=== PATIENT | male | born 1985 | race Caucasian/White ===

== ENCOUNTER 2017-02-22 17:20 | Emergency (ER) | payer MEDICARE ==
[2017-02-22 19:01] LABS: HEMOGLOBIN 15.2 gm/dl (14.0-17.5); RED BLOOD COUNT 5.05 M/UL (4.20-5.50)
[2017-02-22 19:23] LABS: BUN/CREATININE RATIO 19 (0-10)
== END 2017-02-22 23:13 | disposition home or self-care (01) ==
LOC: ER1 17:20
DX: R10.31 Right lower quadrant pain (principal); R11.0 Nausea; R19.7 Diarrhea, unspecified; R68.83 Chills (without fever); I10 Essential (primary) hypertension; Z90.49 Acquired absence of other specified parts of digestive tract; Z79.899 Other long term (current) drug therapy
CPT/HCPCS: 36415; 80053; 81001; 82150; 83690; 85025; 96374; 96375; 99284; J2270; J2405; J7030; J7050; Q9962

== ENCOUNTER 2021-05-09 12:04 | Emergency (ER) | payer OTHER ==
[~2021-05-09 12:04] MED LIST: CATAPRES0.2 MG PO; CLEOCIN HCL300 MG PO; COLESTID1 GM PO; NORCO 7.5-3251 EACH PO; TOPROL XL50 MG PO; ZOFRAN4 MG PO
[2021-05-09 14:04] LABS: HEMOGLOBIN 15.4 gm/dl (14.0-17.5); RED BLOOD COUNT 5.08 M/UL (4.20-5.50); WHITE BLOOD COUNT 10.3 K/UL (4.5-11.0)
[2021-05-09 14:41] LABS: BUN/CREATININE RATIO 15 (0-10)
[2021-05-09] MEDS ORDERED: BENTYL 10MG CAP10 MG PO (18:01)
[2021-05-09] MEDS ORDERED: ZOFRAN4 MG PO (18:01)
== END 2021-05-09 18:04 | disposition home or self-care (01) ==
LOC: ER1 12:04
PROVIDERS: Physician Assistant Medical
DX: R10.31 Right lower quadrant pain (principal); I10 Essential (primary) hypertension; Z90.49 Acquired absence of other specified parts of digestive tract
CPT/HCPCS: 80053; 81001; 85025; 85652; 86140; 99284; Q9967

== ENCOUNTER 2021-07-09 23:21 | Emergency (ER) | payer OTHER ==
[~2021-07-09] VITALS: Ht 185.4 cm; Wt 136.1 kg
[~2021-07-09 23:21] MED LIST changes: +BENTYL 10MG CAP10 MG PO
[2021-07-10 01:04] LABS: HEMOGLOBIN 15.9 gm/dl (14.0-17.5); RED BLOOD COUNT 5.12 M/UL (4.20-5.50); WHITE BLOOD COUNT 7.9 K/UL (4.5-11.0)
[2021-07-10 01:32] LABS: BUN/CREATININE RATIO 10 (0-10)
[2021-07-10] MEDS ORDERED: ZOFRAN ODT 4 MG4 MG PO (04:11)
[2021-07-10] MEDS ORDERED: AZITHROMYCIN250 MG PO (04:11)
== END 2021-07-10 06:15 | disposition home or self-care (01) ==
LOC: ER1 23:21
PROVIDERS: Physician Assistant
DX: U07.1 COVID-19 (principal); Z23 Encounter for immunization; E66.01 Morbid (severe) obesity due to excess calories; R73.9 Hyperglycemia, unspecified; I10 Essential (primary) hypertension; Z90.49 Acquired absence of other specified parts of digestive tract
CPT/HCPCS: 71045; 80053; 83605; 85025; 87040; 96365; 99284; J2405; J7030; M0243; U0002